=== PATIENT | male | born 1960 | race Caucasian/White ===

== ENCOUNTER 2024-12-19 10:01 | Inpatient (IN) | payer MEDICARE, OTHER ==
[~2024-12-19] VITALS: Ht 182.9 cm; Wt 74.8 kg
[2024-12-19 11:16] LABS: BASOPHILS # (AUTO) 0.2 K/uL (0.0-0.2); BASOPHILS % (AUTO) 0.9 % (0.0-2.0); HEMATOCRIT 45 % (39-51); HEMOGLOBIN 15.1 g/dL (13.5-17.5); LYMPHOCYTES # (AUTO) 0.7 K/uL (0.8-4.8); LYMPHOCYTES % (AUTO) 3.9 % (20.0-44.0); MEAN CORPUSCULAR HEMOGLOBIN 33 PG (26.0-33.0); MEAN CORPUSCULAR HGB CONC 33 g/dl (31.0-36.0); MEAN CORPUSCULAR VOLUME 98 fL (80-96); MONOCYTES # (AUTO) 1.3 K/uL (0.1-1.30); MONOCYTES % (AUTO) 7.6 % (2.0-12.0); NEUTROPHILS # (AUTO) 15.3 K/uL (1.8-8.9); NEUTROPHILS % (AUTO) 87.6 % (43.0-81.0); PLATELET COUNT (AUTO) 143 K/uL (150-450); RED BLOOD CELL COUNT(AUTO) 4.64 MIL/uL (4.5-6.0); RED CELL DISTRIBUTION WIDTH 16.5 % (11.5-15.0); WHITE BLOOD COUNT (AUTO) 17.4 K/uL (4.3-11.0)
[2024-12-19 11:50] LABS: CALCIUM, SERUM 8.6 mg/dL (8.5-10.1); CARBON DIOXIDE 12 mmol/L (21-32); CHLORIDE 94 mmol/L (98-107); CREATININE 1.5 mg/dL (0.6-1.3); GLUCOSE 217 mg/dL (74-106); POTASSIUM 5.2 mmol/L (3.5-5.1); SODIUM SERUM 132 mmol/L (136-145); UREA NITROGEN, BLOOD 27 mg/dL (7-18)
[2024-12-19 12:04] LABS: NT-PRO BNP 128 pg/mL (0-125)
[2024-12-19 12:18] LABS: ABG BASE EXCESS -7.1 mmol/L (-2.0-3.0); ABG OXYGEN SATURATION 95.6 % (94.0-98.0); ABG PCO2 26.2 mmHg (35.0-48.0); ABG PH 7.397 (7.350-7.450); ABG PO2 76.5 mmHg (83.0-108.0); ABG TOTAL HEMOGLOBIN 15.8 G/dL (13.5-17.5); MetHb 0.3 % (0.0-1.5); O2Hb 94.4 % (94.0-97.0); SITE, ABG RIGHT RADIAL
[2024-12-19] MEDS ORDERED: ASPIRIN 81 MG TAB.CHEW ONE (12:38)
[2024-12-19] MEDS ORDERED: LORAZEPAM INJ 2 MG/ML VIAL ONE (12:39)
[2024-12-19] MEDS: ASPIRIN 81 MG TAB.CHEW PO ONE (12:40)
[2024-12-19] MEDS ORDERED: ATEN25TA PO (12:48)
[2024-12-19] MEDS ORDERED: ALBU8.5H8 IH (12:48)
[2024-12-19] MEDS ORDERED: QUET50TA PO (12:48)
[2024-12-19] MEDS ORDERED: METO25TA20 PO (12:48)
[2024-12-19 12:54] LABS: LACTIC ACID 4.5 mmol/L (0.4-2.0)
[2024-12-19] MEDS: LORAZEPAM INJ 2 MG/ML VIAL IV ONE (12:56)
[2024-12-19 13:09] LABS: ALANINE AMINOTRANSFERASE 44 U/L (12-78); ALCOHOL, BLOOD < 3 mg/dL (0-10); ALKALINE PHOSPHATASE 73 U/L (46-116); BILIRUBIN,TOTAL 2.3 mg/dL (0.2-1.0); TOTAL PROTEIN, SERUM 8.2 g/dL (6.4-8.2)
[2024-12-19] MEDS ORDERED: PIPERACI/TAZO 3.375GM/D5W 50ML PB IV ONE (13:19)
[2024-12-19 13:21] LABS: ALBUMIN 4.1 g/dL (3.4-5.0); BILIRUBIN,DIRECT 0.4 mg/dL (0.0-0.2)
[2024-12-19] MEDS: PIPERACILLIN /TAZOBACTAM 3.375 G in IV D5W 50 ML IV ONE (13:23)
[2024-12-19] MEDS: BLOOD SUGAR DIAGNOSTIC 1 EACH STRIP IN SCH (13:30)
[2024-12-19] MEDS ORDERED: DEXTROSE 50%-WATER 50 ML DISP.SYRIN IV PRN (13:30)
[2024-12-19] MEDS ORDERED: ACETAMINOPHEN 325 MG TABLET PO PRN (13:30)
[2024-12-19] MEDS ORDERED: INSULIN GLARGINE, 100 UNIT/ML CARTRIDGE SQ SCH (13:30)
[2024-12-19] MEDS ORDERED: ONDANSETRON HCL/PF 4 MG/2 ML VIAL IVP PRN (13:30)
[2024-12-19] MEDS ORDERED: MORPHINE SULFATE INJ 2 MG/ML DISP.SYRIN IV PRN (13:30)
[2024-12-19] MEDS ORDERED: IOHEXOL-350 100 ML VIAL IV ONE (14:00)
[2024-12-19] MEDS ORDERED: IV NS 0.9% 250 ML IV ONE (14:01)
[2024-12-19] MEDS ORDERED: CT SWABBABLE VALVE TRANS SET 1 EA INFUS.SET MC ONE (14:01)
[2024-12-19 14:05] LABS: ALBUMIN 3.8 g/dL (3.4-5.0); BILIRUBIN,TOTAL 2.5 mg/dL (0.2-1.0); CALCIUM, SERUM 8.7 mg/dL (8.5-10.1); CREATININE 1.4 mg/dL (0.6-1.3); POTASSIUM 4.6 mmol/L (3.5-5.1); TOTAL PROTEIN, SERUM 7.9 g/dL (6.4-8.2)
[2024-12-19 15:00] LABS: ASPARTATE AMINOTRANSFERASE 62 U/L (15-37)
[2024-12-19 15:02] LABS: SALICYLATE 2.7 mg/dL (2.8-20.0)
[2024-12-19 15:04] LABS: ACETAMINOPHEN 0 ug/ml (10-30)
[2024-12-19] MEDS ORDERED: LORAZEPAM INJ 2 MG/ML VIAL IV PRN (15:30)
[2024-12-19 16:06] LABS: AMPHETAMINE, URINE NEGATIVE (NEGATIVE); BARBITURATE, URINE NEGATIVE (NEGATIVE); BENZODIAZEPINE, URINE NEGATIVE (NEGATIVE); CANNABINOID, URINE NEGATIVE (NEGATIVE); COCCAINE, URINE NEGATIVE (NEGATIVE); OPIATE, URINE NEGATIVE (NEGATIVE); PHENCYCLIDINE SCREEN,URINE NEGATIVE (NEGATIVE)
[2024-12-19] MEDS: INSULIN REGULAR, HUMAN 100 UNIT/ML 3 ML VIAL SQ PRN (17:39)
[2024-12-19] MEDS: CHLORDIAZEPOXIDE HCL 25 MG CAPSULE PO SCH (18:23)
[2024-12-19] MEDS ORDERED: ALBUTEROL FS 2.5 MG/0.5 ML VIAL.NEB NEB PRN (19:00)
[2024-12-19] MEDS: ALBUTEROL FS 2.5 MG/0.5 ML VIAL.NEB NEB SCH (19:30)
[2024-12-19] MEDS: IV NS 0.9% 1,000 ML IV SCH (19:39)
[2024-12-19 20:00] VITALS: BP 160/90; TEMP 98.1; O2SAT 94
[2024-12-19 20:02] LABS: BILIRUBIN,TOTAL 2.6 mg/dL (0.2-1.0); CALCIUM, SERUM 8.9 mg/dL (8.5-10.1); CREATININE 1.2 mg/dL (0.6-1.3); TOTAL PROTEIN, SERUM 8.2 g/dL (6.4-8.2)
[2024-12-19] MEDS: LEVOFLOXACIN 750 MG /D5W 150ML 750 MG in PREMIX 1 EA IV SCH (20:29)
[2024-12-19] MEDS: HEPARIN SODIUM, PORCINE 5000 UNITS/1 ML VIAL SQ SCH (20:31)
[2024-12-19] MEDS: QUETIAPINE FUMARATE 25 MG TABLET PO PRN (22:48)
[2024-12-19] MEDS: ATENOLOL 25 MG TABLET ONE (23:13)
[2024-12-19] MEDS: IPRATROPIUM NEB FS 0.5 MG/2.5 ML AMPUL.NEB NEB SCH (23:30)
[2024-12-20] VITALS (8 sets, daily range): BP systolic 144–169; BP diastolic 87–100; TEMP 97.9–98.4; O2SAT 95–98
[2024-12-20 00:32] LABS: ALBUMIN 3.4 g/dL (3.4-5.0); BILIRUBIN,TOTAL 2.2 mg/dL (0.2-1.0); CALCIUM, SERUM 8.7 mg/dL (8.5-10.1); POTASSIUM 3.4 mmol/L (3.5-5.1); TOTAL PROTEIN, SERUM 7.2 g/dL (6.4-8.2)
[2024-12-20] MEDS: METOPROLOL TARTRATE 25 MG TABLET PO SCH (08:49)
[2024-12-20 09:03] LABS: BASOPHILS % (AUTO) 0.2 % (0.0-2.0); EOSINOPHILS % (AUTO) 0.9 % (0.0-6.0); HEMATOCRIT 44 % (39-51); HEMOGLOBIN 14.6 g/dL (13.5-17.5); LYMPHOCYTES # (AUTO) 1.1 K/uL (0.8-4.8); LYMPHOCYTES % (AUTO) 21.3 % (20.0-44.0); MEAN CORPUSCULAR HEMOGLOBIN 33 PG (26.0-33.0); MEAN CORPUSCULAR HGB CONC 34 g/dl (31.0-36.0); MEAN CORPUSCULAR VOLUME 98 fL (80-96); MONOCYTES # (AUTO) 0.6 K/uL (0.1-1.30); MONOCYTES % (AUTO) 10.8 % (2.0-12.0); NEUTROPHILS # (AUTO) 3.6 K/uL (1.8-8.9); NEUTROPHILS % (AUTO) 66.8 % (43.0-81.0); PLATELET COUNT (AUTO) 97 K/uL (150-450); RED BLOOD CELL COUNT(AUTO) 4.47 MIL/uL (4.5-6.0); RED CELL DISTRIBUTION WIDTH 16.4 % (11.5-15.0); WHITE BLOOD COUNT (AUTO) 5.3 K/uL (4.3-11.0)
[2024-12-20 09:25] LABS: ALBUMIN 3.4 g/dL (3.4-5.0); BILIRUBIN,TOTAL 2.3 mg/dL (0.2-1.0); CALCIUM, SERUM 8.7 mg/dL (8.5-10.1); MAGNESIUM 2.1 mg/dL (1.8-2.4); PHOSPHORUS 1.7 mg/dL (2.5-4.9); POTASSIUM 3.4 mmol/L (3.5-5.1); TOTAL PROTEIN, SERUM 7.1 g/dL (6.4-8.2)
[2024-12-20] MEDS: hydrALAZINE HCL IV 20 MG VIAL IV PRN (12:53)
[2024-12-20 14:09] LABS: EOSINOPHILS % (MANUAL) 2 % (0-4); LYMPHOCYTES % (MANUAL) 22 % (16-48); MONOCYTES % (MANUAL) 5 % (0-11.0); NEUTROPHILS % (MANUAL) 71 (42-76); PLATELET ESTIMATE DECREASED
[2024-12-20 14:10] LABS: STOMATOCYTES 1+
[2024-12-20 14:31] LABS: ALBUMIN 3.8 g/dL (3.4-5.0); POTASSIUM 3.5 mmol/L (3.5-5.1)
[2024-12-20] MEDS: AMLODIPINE BESYLATE 5 MG TABLET PO SCH (15:09)
[2024-12-20] MEDS: K PHOS NEUTRAL 250 MG TABLET PO ONE (15:16)
[2024-12-20 15:19] LABS: ALBUMIN 3.2 g/dL (3.4-5.0); BILIRUBIN,TOTAL 1.4 mg/dL (0.2-1.0); CALCIUM, SERUM 8.7 mg/dL (8.5-10.1); POTASSIUM 3.5 mmol/L (3.5-5.1); TOTAL PROTEIN, SERUM 6.9 g/dL (6.4-8.2)
[2024-12-20 19:45] LABS: ALBUMIN 3.3 g/dL (3.4-5.0); BILIRUBIN,TOTAL 1.5 mg/dL (0.2-1.0); CALCIUM, SERUM 8.7 mg/dL (8.5-10.1); POTASSIUM 3.2 mmol/L (3.5-5.1)
[2024-12-20] MEDS: ATENOLOL 25 MG TABLET PO SCH (21:38)
[2024-12-20 22:02] LABS: ALBUMIN 3.3 g/dL (3.4-5.0); BILIRUBIN,TOTAL 1.2 mg/dL (0.2-1.0); CALCIUM, SERUM 8.7 mg/dL (8.5-10.1); CREATININE 0.9 mg/dL (0.6-1.3); POTASSIUM 3.4 mmol/L (3.5-5.1)
[2024-12-21] VITALS: BP 175/98; TEMP 98.2; O2SAT 96
[2024-12-21 04:00] VITALS: BP 165/93; TEMP 98.2; O2SAT 96
[2024-12-21 08:00] VITALS: BP 157/96; TEMP 98.1; O2SAT 95
[2024-12-21 08:34] LABS: CALCIUM, SERUM 9.2 mg/dL (8.5-10.1); CREATININE 0.7 mg/dL (0.6-1.3); MAGNESIUM 2.1 mg/dL (1.8-2.4); PHOSPHORUS 3.1 mg/dL (2.5-4.9); POTASSIUM 3.3 mmol/L (3.5-5.1)
[2024-12-21 08:43] LABS: BASOPHILS % (AUTO) 0.4 % (0.0-2.0); EOSINOPHILS # (AUTO) 0.2 K/uL (0.0-0.7); EOSINOPHILS % (AUTO) 3.3 % (0.0-6.0); HEMATOCRIT 44 % (39-51); HEMOGLOBIN 14.8 g/dL (13.5-17.5); LYMPHOCYTES # (AUTO) 1.2 K/uL (0.8-4.8); LYMPHOCYTES % (AUTO) 20.9 % (20.0-44.0); MEAN CORPUSCULAR HEMOGLOBIN 33 PG (26.0-33.0); MEAN CORPUSCULAR HGB CONC 34 g/dl (31.0-36.0); MEAN CORPUSCULAR VOLUME 97 fL (80-96); MONOCYTES # (AUTO) 0.6 K/uL (0.1-1.30); NEUTROPHILS # (AUTO) 3.7 K/uL (1.8-8.9); NEUTROPHILS % (AUTO) 64.4 % (43.0-81.0); PLATELET COUNT (AUTO) 106 K/uL (150-450); RED BLOOD CELL COUNT(AUTO) 4.49 MIL/uL (4.5-6.0); RED CELL DISTRIBUTION WIDTH 16.6 % (11.5-15.0); WHITE BLOOD COUNT (AUTO) 5.7 K/uL (4.3-11.0)
[2024-12-21 08:54] VITALS: BP 157/96
[2024-12-21] MEDS ORDERED: LEVO750T46 PO (11:16)
[2024-12-21] MEDS ORDERED: AMLO-212 PO (11:16)
== END 2024-12-21 11:45 | disposition home or self-care (01) | DRG 871 ==
LOC: ER 10:05 → TELE 13:32 → TELE-TD 16:32 → TELE1 12-20 15:41
PROVIDERS: ADMIT Internal Medicine; ATTEND Nurse Practitioner Family
DX: A41.9 Sepsis, unspecified organism (principal); I21.A1 Myocardial infarction type 2; J15.9 Unspecified bacterial pneumonia; J69.0 Pneumonitis due to inhalation of food and vomit; N17.9 Acute kidney failure, unspecified; F10.939 Alcohol use, unspecified with withdrawal, unspecified; E87.1 Hypo-osmolality and hyponatremia; E87.20 Acidosis, unspecified; J45.901 Unspecified asthma with (acute) exacerbation; R65.20 Severe sepsis without septic shock; I10 Essential (primary) hypertension; D69.6 Thrombocytopenia, unspecified; E87.5 Hyperkalemia; J45.909 Unspecified asthma, uncomplicated; E80.6 Other disorders of bilirubin metabolism; R73.9 Hyperglycemia, unspecified; R74.01 Elevation of levels of liver transaminase levels; M94.0 Chondrocostal junction syndrome [Tietze]
CPT/HCPCS: 36415; 36600; 71045-TC; 76700-TC; 80048-TC; 80053-TC; 80076-TC; 82803-TC; 82962-TC; 83605-TC; 83735-TC; 83880; 84100-TC; 84484-TC; 85025-TC; 85378-TC; 87040-TC; 93307-TC; 93970-TC; 94760-TC; 94762-TC; 94799-TC; A4216; A4223; G0378; G0480; J0360; J1644; J1815; J1956; J2060; J2543; J7030; J7050; J7060; Q9967